=== PATIENT | male | born 1990 | race Caucasian/White ===

== ENCOUNTER 2018-04-06 23:28 | Observation (INO) | payer BC ==
[2018-04-06] MEDS ORDERED: ONDANSETRON 4 MG/2 ML VIAL IVP STA (23:59)
[2018-04-06] MEDS ORDERED: GLUCAGON 1 MG/ML VIAL IVP STA (23:59)
--- NOTE | 2018-04-07 00:11 | ED ---
General Adult HPI - General Chief complaint: ENT Stated complaint: FB in throat Time Seen by Provider: 04/06/18 23:46 Source: patient Mode of arrival: ambulatory Limitations: no limitations - History of Present Illness Initial comments: Jacques is a 27-year-old male who presents to emergency department this evening for evaluation of possible esophageal food bolus. Patient reports that around 7 PM he was eating beef tips, he reports he took a large bite and when he swallowed he felt as though it got stuck in his esophagus. He reports that he feels that it is stuck in his lower esophagus. The patient has tried multiple things at home to remove soft this discomfort. He has tried drinking soda, [place] water, he was told by somebody that he should try to eat bread so he chose to eat pizza. Patient reports that anytime he eats or drinks anything he feels like it comes back up. He agreed to come to the ER for evaluation, on arrival in the waiting room he drank a bottle of water however he vomited that up and noted that he vomited up some of the pizza crust with that. She has no history of esophageal foreign body. He does not follow with gastroenterology for anything he has never had a scope. He has no known esophageal pathology. - Related Data Home Medications Medication Instructions Recorded Confirmed No Known Home Medications 04/06/18 04/06/18 Allergies Allergy/AdvReac Type Severity Reaction Status Date / Time No Known Allergies Allergy Verified 04/06/18 23:36 Review of Systems ROS Statement: Those systems with pertinent positive or pertinent negative responses have been documented in the HPI. ROS Other: All systems not noted in ROS Statement are negative. Past Medical History Past Medical History: No Reported History History of Any Multi-Drug Resistant Organisms: None Reported Additional Past Surgical History / Comment(s): tumor removed from chest Past Psychological History: ADD/ADHD Smoking Status: Never smoker Past Alcohol Use History: Occasional Past Drug Use History: None Reported General Exam Limitations: no limitations General appearance: alert, other (Spitting his oral secretions) Head exam: Present: atraumatic, normocephalic Eye exam: Present: normal appearance, PERRL ENT exam: Present: normal exam, mucous membranes moist Neck exam: Present: normal inspection, full ROM Respiratory exam: Present: normal lung sounds bilaterally, respiratory distress , other (No crepitance) Cardiovascular Exam: Present: regular rate, normal rhythm GI/Abdominal exam: Present: soft, normal bowel sounds. Absent: distended, tenderness, guarding, rebound, rigid Rectal exam: Present: deferred Extremities exam: Present: normal inspection, full ROM, normal capillary refill Back exam: Present: normal inspection Neurological exam: Present: alert, oriented X3 Psychiatric exam: Present: normal affect, normal mood Skin exam: Present: warm, dry Course Vital Signs 04/06/18 23:32 Temperature 97.8 F Pulse Rate 66 Respiratory 20 Rate Blood Pressure 128/78 O2 Sat by Pulse 100 Oximetry Medical Decision Making - Medical Decision Making The patient was seen and evaluated, patient is able to speak clearly however he is noted to be spitting his oral secretions Chest x-ray, zofran were ordered. patient was given glucagon and drink pepsi. he was unable to keep down the pepsi. he continues to be unable to clear his oral secretions. Chest x-ray unremarkable EKG is normal sinus rhythm, rate of 60, normal axis, normal intervals, no acute ST elevations or depressions. I have no suspicion that this is cardiac etiology of discomfort. Care was discussed with Dr. Edwards who agrees with plan to use the patient in observation with the plan for endoscopy in the morning Disposition Clinical Impression: Esophageal obstruction due to food impaction Disposition: ADMITTED IP TO [facility] Referrals: None,Stated [Primary Care Provider] - 1-2 days Decision Time: 00:42
--- NOTE | 2018-04-07 00:32 | XR ---
EXAMINATION TYPE: XR chest 2V DATE OF EXAM: 04/07/2018 COMPARISON: NONE HISTORY: Chest pain TECHNIQUE: Frontal and lateral views of the chest are obtained. FINDINGS: Heart and mediastinum are normal. Lungs are clear. Diaphragm is normal. Bony thorax appear s normal. Pulmonary vascularity is normal. There is no sign of a dilated esophagus. IMPRESSION: Normal chest
[2018-04-07] MEDS ORDERED: NALOXONE 0.4 MG/ML 1 ML VIAL IV PRN (00:37)
[2018-04-07] MEDS ORDERED: ONDANSETRON 4 MG/2 ML VIAL IVP PRN (00:37)
[2018-04-07] MEDS ORDERED: LACTATED RINGERS 1,000 ML IV SCH (00:45)
[2018-04-07 01:42] VITALS: BMI 30.1
[2018-04-07] MEDS ORDERED: PROPOFOL 10 MG/ML 20 ML VIAL IV ONE (07:34)
[2018-04-07] MEDS ORDERED: IV FLUID CONTINUATION 1,000 ML IV ONE (07:37)
--- NOTE | 2018-04-07 07:52 | P.PCN ---
Date of Procedure: 04/07/18 Procedure(s) Performed: BRIEF HISTORY: Patient is a 27-year-old, pleasant, white female male in the emergency room around midnight with acute dysphagia. He is been having intermittent episodes of dysphagia for the last several months duration. He scheduled for an upper endoscopy for foreign body removal.. PROCEDURE PERFORMED: Esophagogastroduodenoscopy with biopsy and foreign body removal. PREOPERATIVE DIAGNOSIS: Acute for dysphagia. IV sedation per anesthesia. PROCEDURE: After informed consent was obtained, the patient was brought into the endoscopy unit. IV sedation was administered by Anesthesia under continuous monitoring. Initially the Olympus GIF-140 video endoscope was inserted into the mouth. Esophagus intubated without any difficulty. It was gradually advanced into the distal esophagus where there was a large piece of food bolus impacted. Using a snare was able to break it into few pieces and subsequently was able to push the rest of the food bolus into the stomach. The scope was advanced into the stomach and duodenum and carefully examined. The bulb and the second part of the duodenum appeared normal. The scope at this time was withdrawn to the stomach, adequately insufflated with air, and upon careful examination, mucosa of the antrum, body, cardia and the fundus appeared normal. The scope was then withdrawn into the esophagus. The GE junction was located at 41 cm from the incisors. The mid and distal esophagus had multiple thickened esophageal folds with superficial mucosal rings and an early distal esophageal stricture all consistent with eosinophilic esophagitis and multiple biopsies were done from the mid and distal esophagus. The proximal cervical esophagus appeared normal and the patient tolerated the procedure well. IMPRESSION: 1. Food impaction in the distal esophagus status post removal as described above. 2. Thickened esophageal folds with multiple superficial mucosal rings and longitudinal ridges and fundus in the mid and distal esophagus CONSISTENT with eosinophilic esophagitis status post multiple biopsies. RECOMMENDATIONS: The findings of this examination were discussed with the patient. He will be started on Prilosec 20 mg daily. He was advised to follow with local milling machinist in one to 2 weeks to discuss the biopsy results and further management.
[2018-04-07] MEDS ORDERED: PANTOPRAZOLE 40 MG TABLET PO SCH (08:00)
[2018-04-07 08:07] VITALS: TEMP 97.6
--- NOTE | 2018-04-07 08:27 | CONS ---
CONSULTATION DATE OF DICTATION: April 07, 2018. REQUESTING PHYSICIAN: Dr. Gloria at [facility]. HISTORY OF PRESENT ILLNESS: The patient is a 27 -year-old pleasant white male who came to the emergency room last night with acute food dysphagia. He was eating a piece of stead for dinner last night and could not swallow. Came into the emergency room and subsequently admitted to observation. The patient has been having intermittent dysphagia to solids for the last several months duration. Denies any heartburn. Never had choking episodes in the past. He reports no abdominal pain. No fever, chills, or night sweats. PAST MEDICAL HISTORY: Significant for none. Past surgical history none. MEDICATIONS: At home none. ALLERGIES: No known drug allergies. SOCIAL HISTORY: He denies any smoking, occasional alcohol use. FAMILY HISTORY: Unremarkable. REVIEW OF SYSTEMS: Cardiopulmonary: No chest pain, shortness of breath. Genitourinary: No dysuria or hematuria. Musculoskeletal: Unremarkable. Skin unremarkable. Endocrine unremarkable. Psychiatric unremarkable. Neurology unremarkable. ENT vision unremarkable. Constitutional: No recent weight loss. No fevers, chills, night sweats. PHYSICAL EXAMINATION: He appears comfortable. No apparent distress. Vital signs stable. Blood pressure 128/78, pulse is 66, temperature 97.2 HEENT examination unremarkable. Conjunctivae pink. Sclerae anicteric. Oral cavity no lesions. Neck no jugular venous distention or lymph node enlargement. Chest was clear to auscultation. HEART: Regular rate and rhythm. ABDOMEN: Soft. Bowel sounds are positive. No organomegaly. Extremities: No pedal edema. NEUROLOGIC: Alert and oriented x3. No focal deficits. LAB: No labs done at the time of admission to the the hospital. IMPRESSION: Acute food dysphagia in this patient who was eating a piece of steak last night for dinner. Came to the emergency room around midnight and subsequently admitted to observation. Never had these symptoms in the past other than intermittent dysphagia to certain foods. RECOMMENDATIONS: EGD with foreign body removal this morning, I discussed with the patient risks, benefits and complications of the procedure and he is agreeable to it. Thank you for this consultation. MMODL / IJN: [id number] /
[2018-04-07 09:55] VITALS: BP 123/72; PULSE 62; RESP 14
--- NOTE | 2018-04-07 11:28 | P.DS ---
Providers Date of admission: 04/07/18 00:41 Attending physician: Clay Zaldivar MD Consults: 04/07/18 00:37 Consult Physician Stat Consulting Provider: Mago Edwards Consult Reason/Comments: esophageal food bolus Do you want consulting provider notified?: Already Contacted Primary care physician: Physician Nonstaff Hospital Course: Please refer to my HPI Plan - Discharge Summary New Discharge Prescriptions: New Omeprazole [PriLOSEC] 20 mg PO AC-BRKFST #14 capsule. Discharge Medication List Omeprazole [PriLOSEC] 20 mg PO AC-BRKFST #14 capsule. 04/07/18 [Rx] Follow up Appointment(s)/Referral(s): None,Stated [REFERRING] - 1-2 days Discharge Disposition: HOME SELF-CARE
--- NOTE | 2018-04-07 11:28 | P.HPIM ---
History of Present Illness 27-year-old present. Gentleman came in after a steak stuck in his o. As patient underwent upper GI endoscopy removal of debris was done and patient is found to have inflammation consistent with the Bystolic esophagitis discussed with gastroenterology they're recommending a Prilosec patient will be discharged on Prilosec for 2 weeks follow-up with his primary care patient is an outpatient patient is feeling better now able to tolerate diet well. Patient is basically admitted for esophageal foreign body which was removed. Review of Systems REVIEW OF SYSTEMS: CONSTITUTIONAL: No fever, no malaise, no fatigue. HEENT: No recent visual problems or hearing problems. Denied any sore throat. CARDIOVASCULAR: No chest pain, orthopnea, PND, no palpitations, no syncope. PULMONARY: No shortness of breath, no cough, no hemoptysis. GASTROINTESTINAL: no abdominal pain. Normoactive bowel sounds. NEUROLOGICAL: No headaches, no weakness, no numbness. HEMATOLOGICAL: Denies any bleeding or petechiae. GENITOURINARY: Denies any burning micturition, frequency, or urgency. MUSCULOSKELETAL/RHEUMATOLOGICAL: Denies any joint pain, swelling, or any muscle pain. ENDOCRINE: Denies any polyuria or polydipsia. The rest of the 14-point review of systems is negative. Past Medical History Past Medical History: No Reported History History of Any Multi-Drug Resistant Organisms: None Reported Additional Past Surgical History / Comment(s): tumor removed from chest Past Anesthesia/Blood Transfusion Reactions: No Reported Reaction Past Psychological History: ADD/ADHD Smoking Status: Never smoker Past Alcohol Use History: Occasional Past Drug Use History: None Reported - Past Family History Mother Family Medical History: Diabetes Mellitus, Hypertension Medications and Allergies Home Medications Medication Instructions Recorded Confirmed Type Omeprazole [PriLOSEC] 20 mg PO AC-BRKFST #14 capsule. 04/07/18 Rx Allergies Allergy/AdvReac Type Severity Reaction Status Date / Time No Known Allergies Allergy Verified 04/06/18 23:36 Physical Exam Vitals: Vital Signs Temp Pulse Pulse Resp BP BP Pulse Ox 04/07/18 09:30 62 14 123/72 100 04/07/18 08:45 67 12 128/78 97 04/07/18 08:30 62 12 97/62 97 04/07/18 08:15 61 12 114/53 96 04/07/18 08:00 97.6 F 67 12 107/59 96 04/07/18 07:00 98.2 F 72 16 136/86 99 04/07/18 04:00 18 04/07/18 01:26 97.1 F L 76 18 140/84 98 04/06/18 23:32 97.8 F 66 20 128/78 100 Intake and Output 04/06/18 04/07/18 04/07/18 22:59 06:59 14:59 Intake Total 150 Output Total 52 Balance -52 150 Intake: IV 150 Output: Urine 2 Emesis 50 Other: Voiding Method Toilet Toilet Weight 95.254 kg PHYSICAL EXAMINATION: GENERAL: The patient is alert and oriented x3, not in any acute distress. Well developed, well nourished. HEENT: Pupils are round and equally reacting to light. EOMI. No scleral icterus. No conjunctival pallor. Normocephalic, atraumatic. No pharyngeal erythema. No thyromegaly. CARDIOVASCULAR: S1 and S2 present. No murmurs, rubs, or gallops. PULMONARY: Chest is clear to auscultation, no wheezing or crackles. ABDOMEN: Soft, nontender, nondistended, normoactive bowel sounds. No palpable organomegaly. MUSCULOSKELETAL: No joint swelling or deformity. EXTREMITIES: No cyanosis, clubbing, or pedal edema. NEUROLOGICAL: Gross neurological examination did not reveal any focal deficits. SKIN: No rashes. Thrombosis Risk Factor Assmnt - Choose All That Apply Each Factor Represents 1 point: Obesity (BMI >25) Thrombosis Risk Factor Assessment Total Risk Factor Score: 1 Thrombosis Risk Factor Assessment Level: Low Risk Assessment and Plan Plan: -Esophageal foreign body: Status post removal. -Possibly eosinophilic esophagitis.
== END 2018-04-07 10:00 | disposition home or self-care (01) ==
LOC: EC 23:28 → 3OBS 04-07 00:41
PROVIDERS: ADMIT Internal Medicine; ATTEND Internal Medicine
DX: T18.128A Food in esophagus causing other injury, initial encounter (principal); K22.2 Esophageal obstruction; E66.9 Obesity, unspecified; Z68.30 Body mass index [BMI] 30.0-30.9, adult; F90.9 Attention-deficit hyperactivity disorder, unspecified type; Z83.3 Family history of diabetes mellitus; Z82.49 Family history of ischemic heart disease and other diseases of the circulatory system; X58.XXXA Exposure to other specified factors, initial encounter
CPT/HCPCS: 99284 ×2; 96374 ×2; 96375 ×2; 93005; 88305; 71046; 43239; 43247; G0378; J1610; J2405; J2704